=== PATIENT | female | born 1950 | race Caucasian/White ===

== ENCOUNTER 2018-05-01 09:48 | Outpatient (CLI) | payer MEDICARE | END 2018-05-01 09:49 | disposition home or self-care (01) | LOC: BICMAMMO 09:48 | PROVIDERS: ATTEND Family Medicine | DX: Z12.31 Encounter for screening mammogram for malignant neoplasm of breast (principal) | CPT/HCPCS: 77063; 77067 ==

== ENCOUNTER 2019-07-08 10:17 | Outpatient (CLI) | payer MEDICARE ==
--- NOTE | 2019-07-08 11:10 | MMO ---
Bilateral MAMMO Bilat Screen [facility]. CLINICAL HISTORY: Patient is 68 years old and is seen for screening. The patient has the following family history of breast cancer: mother, at age 50, malignant (generic). The patient has no personal history of cancer. VIEWS: The views performed were: bilateral craniocaudal with tomosynthesis and bilateral mediolateral oblique with tomosynthesis. FILMS COMPARED: The present examination has been compared to prior imaging studies performed at [facility] on 02/12/2015, 04/17/2016, 04/25/2017 and 05/01/2018. This study has been interpreted with the assistance of computer-aided detection. MAMMOGRAM FINDINGS: There are scattered fibroglandular densities. Finding 1: There are stable benign appearing calcifications seen in both breasts. There are also vascular calcifications. Finding 2: There is an asymmetry seen in the MLO view only seen in the posterior upper region of the left breast. IMPRESSION: FINDING 2: ASYMMETRY IN THE LEFT BREAST REQUIRES ADDITIONAL EVALUATION. RECOMMEND DIAGNOSTIC MAMMOGRAM. ULTRASOUND MAY ALSO PROVE USEFUL AT RECALL. THE RESULTS OF THIS EXAM WERE SENT TO THE PATIENT. ACR BI-RADS Category 0 - Incomplete: Need additional imaging evaluation. [facility] will notify the patient of the need for additional imaging services. MAMMOGRAPHY NOTE: 1. A negative mammogram report should not delay a biopsy if a dominant of clinically suspicious mass is present. 2. Approximately 10% to 15% of breast cancers are not detected by mammography. 3. Adenosis and dense breasts may obscure an underlying neoplasm. Reported by: RICCI ESCALANTE MD Electonically Signed: [id number]
== END 2019-07-08 10:18 | disposition home or self-care (01) ==
LOC: BICMAMMO 10:17
PROVIDERS: ATTEND Family Medicine
DX: Z12.31 Encounter for screening mammogram for malignant neoplasm of breast (principal); N64.89 Other specified disorders of breast; Z80.3 Family history of malignant neoplasm of breast
CPT/HCPCS: 77063; 77067

== ENCOUNTER 2020-04-27 08:21 | Outpatient (CLI) | payer MEDICARE ==
--- NOTE | 2020-04-27 09:01 | ULT ---
Ultrasound of theabdomen: 04/27/2020 COMPARISON:None available HISTORY:Dysuria TECHNIQUE: Multiplanar grayscale sonographic imaging of theabdomen FINDINGS:Visualized portions of the pancreas appear unremarkable. Imaged abdominal aorta demonstrates multifocal calcified atherosclerotic plaque. Imaged IVC grossly unremarkable. No focal liver lesion or intrahepatic biliary dilatation is noted. No gallbladder wall thickening or gallstones. Common bile duct measures 5-6 mm. Right kidney measures 9.6 cm in craniocaudal dimension and demonstrates no mass or hydronephrosis. Th ere are a few punctate echogenic foci within the right kidney which could signify small stones. The left kidney measures 11.4 cm in craniocaudal dimension and demonstrates no stone, hydronephrosis, or mass. The spleen measures up to 9.6 cm, within normal limits. IMPRESSION:No evidence for cholelithiasis or cholecystitis. No hydronephrosis. Possible small right r enal calculi. CT suggested.
--- NOTE | 2020-04-27 09:42 | ULT ---
Exam: Endovaginal pelvic ultrasound HISTORY:Dysuria COMPARISON: None TECHNIQUE: Transabdominal and endovaginal imaging of the pelvis is performed. Ovaries are interrogate d with grayscale, color flow, Doppler imaging and spectral wave form analysis FINDINGS: Uterus: Echogenic focus in the uterine fundus measuring 1.9 x 1.9 x 1.9 cm. Findings may represent a uterine leiomyoma. Uterus measurin.9 x 3.1 x 5.7 cm. Endometrium: Poorly visualized. 3 Free fluid: None Right ovary: Not appreciated Left ovary: Normal echotexture. Left ovary measurements: 1.8 x 1.8 x 2.6 cm Ovarian Doppler: There is vascular flow to the left ovary. Bladder: No signal abnormality. IMPRESSION: Echogenic focus in the uterine myometrium may represent a uterine leiomyoma confirmation with pelvic MRI is recommended given that the patient is presumed to be postmenopausal. The possibility of a malignant process needs to be excluded. CODE T
== END 2020-04-27 08:22 | disposition home or self-care (01) ==
LOC: BICULT 08:21
PROVIDERS: ATTEND Family Medicine
DX: R30.0 Dysuria (principal)
CPT/HCPCS: 76856; 76857; 93975

== ENCOUNTER 2020-05-01 06:39 | Inpatient (IN) | payer MEDICARE, OTHER ==
[2020-05-01 07:34] LABS: Hemoglobin 9.8 g/dL (12.0-16.0); Mean Corpuscular HGB CONC 34.4 g/dL (32.0-36.0); Mean Corpuscular Hemoglobin 42.8 pg (27.0-31.0); Mean Platelet Volume 7.2 fL (7.4-10.4); Platelet Count 238 thou/uL (130-400); RBC Distribution Width 13.6 % (11.5-14.5); Red Blood Cell (RBC) Count 2.29 mill/uL (4.20-5.40)
[2020-05-01 07:42] LABS: ALT (SGPT) 10 U/L (8-55); AST (SGOT) 22 U/L (5-34); Albumin 3.8 g/dL (3.4-4.8); Alkaline Phosphatase 43 U/L (40-110); Anion Gap 15 mmol/L (10-20); BUN (Urea Nitrogen) 5 mg/dL (9.8-20.1); Bilirubin, Total 0.8 mg/dL (0.2-1.2); Calc. Creatinine Clearance 0 mL/min (70-130); Calcium 8.2 mg/dL (7.8-10.44); Carbon Dioxide 25 mmol/L (23-31); Chloride 100 mmol/L (98-107); Estimated GFR-MDRD 84; Globulin 1.9 g/dL (2.4-3.5); Glucose 117 mg/dL (83-110); Potassium 3.7 mmol/L (3.5-5.1); Protein, Total 5.7 g/dL (6.0-8.3); Sodium 136 mmol/L (136-145)
[2020-05-01 07:46] LABS: #Eosinphils 0.2 thou/uL (0.0-0.7); #Lymphocytes 0.8 thou/uL (1.20-3.40); #Monocytes 0.2 thou/uL (0.11-0.59); #Neutrophils 1.7 thou/uL (1.40-6.50); %Basophils 0.3 % (0.0-1.0); %Eosinophils 7.7 % (0.0-10.0); %Lymphocytes 26.8 % (21.0-51.0); %Monocytes 5.1 % (0.0-10.0); %Neutrophils 60.1 % (42.0-75.0); MDiff Complete? YES; Macrocytosis MODERATE=16-30 cells (100X) (0-5/hpf); Platelet Morphology Comment Appears Adequate; White Blood Cell (WBC) Count 2.9 thou/uL (4.8-10.8)
[2020-05-01 09:46] LABS: Bilirubin Negative (Negative); Blood, Urine Negative (Negative); Clarity Clear (Clear); Glucose, Urine (Dipstick) Normal (Negative); Ketone, Urine 40 mg/dL (Negative); Leukocyte Negative Leu/uL (Negative); Nitrite Negative (Negative); Protein, Urine (Dipstick) Negative (Neg-Trace); Specific Gravity, Urine 1.009 (1.002-1.036); Urobilinogen Normal mg/dL (Less than 2); pH, Urine 6.5 (5.0-9.0)
[2020-05-01] MEDS ORDERED: cefTRIAXone\\ROCEPHIN 1 GM VIAL ONE (11:18)
[2020-05-01] MEDS ORDERED: Ondansetron PF 4 MG/2 ML Vial IVP PRN (12:11)
[2020-05-01] MEDS: Sodium Chloride 0.9% 1,000 ML IV SCH ×2 (12:15→17:47)
[2020-05-01] MEDS: Vancomycin HCl 25 MG/ML Oral PO SCH ×3 (14:34→23:25)
[2020-05-01] MEDS: Acetaminophen 325 MG TAB PO PRN ×2 (16:06→23:28)
--- NOTE | 2020-05-01 17:02 | HP ---
CHIEF COMPLAINT: Diarrhea. HISTORY OF PRESENT ILLNESS: The patient is a 69-year-old female with past medical history of coronary artery disease and ventricular fibrillation in 2012. She presented to the hospital with complaints of diarrhea. The patient was diagnosed with UTI 6 weeks ago and since then has been off and on antibiotics until yesterday. The patient received different types of antibiotics and her symptoms did not improve and finally received Rocephin for the past 3 days, which led to improvement in her urinary symptoms. In the ER, her UA was clear. The patient complained of severe diarrhea over the past few days that is liquid in nature with some mixed blood. She denies any nausea or vomiting, but complained of mild abdominal pain. She also denies fevers or chills. She was tested negative for COVID-19 a couple of days ago. REVIEW OF SYSTEMS: Negative except as noted in HPI. PAST MEDICAL HISTORY: Coronary artery disease, status post stent and ventricular fibrillation during that event. PAST SURGICAL HISTORY: Tubal ligation. SOCIAL HISTORY: The patient denies alcohol use, illicit drug use, or smoking. ALLERGIES: NO KNOWN DRUG ALLERGIES. PHYSICAL EXAMINATION: GENERAL: The patient is alert and oriented. HEENT: Head is normocephalic and atraumatic. Extraocular muscles are intact. NECK: Supple. CARDIOVASCULAR: Revealed tachycardia with regular rhythm. No murmurs, rubs, or gallops. ABDOMEN: Soft, nontender, and nondistended. NEUROLOGIC: Unremarkable. DATA: The patient's urine culture from 04/16 did show growth of E coli, which is sensitive to ceftriaxone. Recent urine culture on April 29 was negative. Stool cultures were negative for bacteria, but were positive for C difficile antigen and toxin. ASSESSMENT: 1. Clostridium difficile colitis. 2. Dehydration. 3. Coronary artery disease. 4. History of urinary tract infection. PLAN: The patient will be admitted to the medical floor. We will start oral vancomycin 250 mg q.6 hours in addition to IV normal saline at 75 mL/h. The patient will be started on liquid diet and we will initiate enoxaparin for DVT prophylaxis. Further recommendations depend on the patient's hospital course. Job ID: [id number]
[2020-05-02] MEDS: Sodium Chloride 0.9% 1,000 ML IV SCH ×3 (01:46→19:59)
[2020-05-02] MEDS: Vancomycin HCl 25 MG/ML Oral PO SCH ×4 (05:43→23:56)
[2020-05-02] MEDS: Acetaminophen 325 MG TAB PO PRN ×2 (06:04→17:03)
[2020-05-02 06:12] LABS: #Eosinphils 0.1 thou/uL (0.0-0.7); #Lymphocytes 0.5 thou/uL (1.20-3.40); #Monocytes 0.2 thou/uL (0.11-0.59); %Basophils 0.2 % (0.0-1.0); %Eosinophils 3.6 % (0.0-10.0); %Lymphocytes 17.7 % (21.0-51.0); %Monocytes 5.9 % (0.0-10.0); %Neutrophils 72.7 % (42.0-75.0); Mean Corpuscular HGB CONC 34.6 g/dL (32.0-36.0); Mean Corpuscular Hemoglobin 43.6 pg (27.0-31.0); Mean Platelet Volume 7.1 fL (7.4-10.4); Platelet Count 200 thou/uL (130-400); RBC Distribution Width 13.6 % (11.5-14.5); Red Blood Cell (RBC) Count 2.07 mill/uL (4.20-5.40); White Blood Cell (WBC) Count 2.7 thou/uL (4.8-10.8)
[2020-05-02 06:26] LABS: Anion Gap 13 mmol/L (10-20); BUN (Urea Nitrogen) 4 mg/dL (9.8-20.1); Calc. Creatinine Clearance 72 mL/min (70-130); Calcium 7.6 mg/dL (7.8-10.44); Carbon Dioxide 21 mmol/L (23-31); Chloride 104 mmol/L (98-107); Estimated GFR-MDRD Greater than 90; Glucose 106 mg/dL (83-110); Potassium 3.4 mmol/L (3.5-5.1); Sodium 135 mmol/L (136-145)
[2020-05-02] MEDS ORDERED: Potassium Chloride 20 MEQ TAB PO SCH (08:15)
[2020-05-02] MEDS ORDERED: FLU VACC QS2020-21(65YR UP)/PF 240 MCG/0.7 ML SYRINGE IM ONE (09:00)
[2020-05-02] MEDS: Enoxaparin Sodium 40 MG/0.4 ML SYRINGE SC SCH (09:09)
--- NOTE | 2020-05-02 11:41 | PDOC.HOSPP ---
- Subjective Encounter Date: 05/02/20 Encounter Time: 09:00 Subjective: Pt reports she overall feels well. Endorses persistent diarrhea and foul- smelling stools. Endorses abdominal pain and cramping. Denies fever/chills, dizziness. Denies chest pain, SOB. Tolerating clear liquid diet. No overnight events. Chart and medications reviewed. - Objective Vital Signs & Weight: Vital Signs (12 hours) Temp Pulse Resp BP Pulse Ox 05/02/20 11:20 98.8 F 92 18 112/56 L 94 L 05/02/20 08:00 98.0 F 92 05/02/20 07:21 98.0 F 92 18 109/56 L 94 L 05/02/20 04:00 100.8 F H 97 18 109/65 93 L Weight Weight 110 lb 6.4 oz I&O: 05/01/20 05/02/20 05/03/20 06:59 06:59 06:59 Intake Total 1600 240 Balance 1600 240 Result Diagrams: 05/02/20 05:45 05/02/20 05:45 Hospitalist ROS - Review of Systems Constitutional: reports: weakness. denies: fever, chills Eyes: denies: vision change ENT: denies: nose congestion, throat pain Respiratory: denies: cough, shortness of breath Cardiovascular: denies: chest pain, palpitations Gastrointestinal: reports: abdominal pain, diarrhea, melena, hematochezia. denies: nausea, vomiting Genitourinary: denies: dysuria Skin: denies: rash Neurological: denies: weakness, numbness - Medication Medications: Active Medications Generic Name Dose Route Start Last Admin Trade Name Panchoq PRN Reason Stop Dose Admin Acetaminophen 650 mg 05/01/20 12:11 05/02/20 06:04 Acetaminophen 325 Mg Tab PO 650 mg Q4H PRN Administration Headache/Fever/Mild Pain (1-3) Enoxaparin Sodium 40 mg 05/02/20 09:00 05/02/20 09:09 Enoxaparin Sodium 40 Mg/0.4 Ml Syringe SC Not Given 0900 TIMOTHY Sodium Chloride 1,000 mls @ 75 mls/hr 05/01/20 12:15 05/02/20 05:48 Normal Saline 0.9% IV 1,000 mls .[id number] TIMOTHY Administration Sodium Chloride 10 ml 05/02/20 09:00 05/02/20 09:09 Flush - Normal Saline 10 Ml Syringe IVF 10 ml Q12HR TIMOTHY Administration Vancomycin HCl 250 mg 05/01/20 12:00 05/02/20 05:43 Vancomycin Hcl 25 Mg/Ml Oral PO 250 mg Q6HR TIMOTHY Administration - Exam General Appearance: NAD, awake alert Eye: PERRL, anicteric sclera ENT: normocephalic atraumatic, no oropharyngeal lesions, moist mucosa Neck: supple, symmetric, no JVD, no thyromegaly, no lymphadenopathy, no carotid bruit Heart: RRR, no murmur, no gallops, no rubs, normal peripheral pulses Respiratory: CTAB, no wheezes, no rales, no ronchi, normal chest expansion, no tachypnea, normal percussion Gastrointestinal: soft, non-distended, normal bowel sounds, no palpable masses, no hepatomegaly, no splenomegaly, no bruit, tender to palpation Extremities: no cyanosis, no clubbing, no edema Skin: normal turgor, no lesions, no rashes Neurological: cranial nerve grossly intact, normal sensation to touch, no weakness, no focal deficits, no new deficit Musculoskeletal: normal tone, normal strength, no muscle wasting Psychiatric: normal affect, normal behavior, A&O x 3 Hosp A/P (1) C. difficile colitis Code(s): A04.72 - ENTEROCOLITIS D/T CLOSTRIDIUM DIFFICILE, NOT SPCF RECUR Status: Acute (2) CAD (coronary artery disease) Code(s): I25.10 - ATHSCL HEART DISEASE OF [place] CORONARY ARTERY W/O ANG PCTRS Status: Acute (3) History of ventricular fibrillation Code(s): Z86.79 - PERSONAL HISTORY OF OTHER DISEASES OF THE CIRCULATORY SYSTEM Status: Acute (4) Hypertension Code(s): I10 - ESSENTIAL (PRIMARY) HYPERTENSION Status: Acute (5) Hyperlipidemia Code(s): E78.5 - HYPERLIPIDEMIA, UNSPECIFIED Status: Acute (6) Hypokalemia Code(s): E87.6 - HYPOKALEMIA Status: Acute - Plan C. difficile Colitis: 69F hx CAD, v-fib, HTN, HLD p/w diarrhea and abdominal pain found to have c. diff colitis. Pt had recent UTI 6 weeks ago that required multiple abx. Most recently 3 days ago she was treated with ceftriaxone. Pt currently denies urinary symptoms. UA negative. Stool positive for c. diff antigen and toxin. WBC 2.7, afebrile. BUN/Cr 4/0.57. Pt started on PO vancomycin. PLAN: -PO vancomycin -Clear liquid diet -Serial abdominal exams History of V. fib: Hx of v. fib in 2012. On home magnesium. Will check level and continue. PLAN: -Mg level -Replete as needed CAD: Hx CAD. On home metoprolol 12.5 mg, crestor 20 mg, and ASA 81 mg. Continue home meds. Macrocytic Anemia: CBC with H/H of 9.0/26.1, elevated MCHC, MCV. Vitamin B12 level low at 109. PLAN: -Vitamin B12 PO -Follow-up with PCP Hypertension: Continue home lisinopril. Hyperlipidemia: Continue crestor 20 mg. DVT prophylaxis: lovenox FULL CODE Case discussed with attending physician, Dr. Hernandez.
[2020-05-02] MEDS: Potassium Phosphate 30 MMOL in Sodium Chloride 0.9% 250 ML 250 ML IVPB SCH (12:52)
[2020-05-02] MEDS: Metoprolol Tartrate 25 MG TAB PO SCH (19:58)
[2020-05-02] MEDS ORDERED: Preparation H Ointment 57 gram tube TOP PRN (20:18)
[2020-05-03] MEDS: Sodium Chloride 0.9% 1,000 ML IV SCH ×2 (05:25→14:21)
[2020-05-03] MEDS: Vancomycin HCl 25 MG/ML Oral PO SCH ×3 (05:28→17:23)
[2020-05-03] MEDS: Acetaminophen 325 MG TAB PO PRN ×2 (05:29→17:23)
[2020-05-03 06:01] LABS: #Eosinphils 0.2 thou/uL (0.0-0.7); #Monocytes 0.1 thou/uL (0.11-0.59); #Neutrophils 4.3 thou/uL (1.40-6.50); %Basophils 0.3 % (0.0-1.0); %Eosinophils 2.8 % (0.0-10.0); %Lymphocytes 18.3 % (21.0-51.0); %Monocytes 1.8 % (0.0-10.0); %Neutrophils 76.9 % (42.0-75.0); Hemoglobin 10.2 g/dL (12.0-16.0); Mean Corpuscular HGB CONC 32.9 g/dL (32.0-36.0); Mean Corpuscular Hemoglobin 42.1 pg (27.0-31.0); Mean Platelet Volume 7.4 fL (7.4-10.4); Platelet Count 225 thou/uL (130-400); RBC Distribution Width 13.7 % (11.5-14.5); Red Blood Cell (RBC) Count 2.42 mill/uL (4.20-5.40); White Blood Cell (WBC) Count 5.5 thou/uL (4.8-10.8)
[2020-05-03 06:14] LABS: Anion Gap 14 mmol/L (10-20); BUN (Urea Nitrogen) 4 mg/dL (9.8-20.1); Calc. Creatinine Clearance 71 mL/min (70-130); Calcium 8.1 mg/dL (7.8-10.44); Carbon Dioxide 21 mmol/L (23-31); Chloride 100 mmol/L (98-107); Estimated GFR-MDRD Greater than 90; Glucose 106 mg/dL (83-110); Potassium 3.8 mmol/L (3.5-5.1); Sodium 131 mmol/L (136-145)
[2020-05-03] MEDS: Lisinopril 2.5 MG TAB PO SCH (08:35)
[2020-05-03] MEDS: Aspirin Chewable 81 MG TAB PO SCH (08:35)
[2020-05-03] MEDS: Enoxaparin Sodium 40 MG/0.4 ML SYRINGE SC SCH (08:37)
[2020-05-03] MEDS: Cholecalciferol 1,000 UNITS (25 MCG) TAB PO SCH (08:37)
[2020-05-03] MEDS: Cyanocobalamin (Vitamin B-12) 1,000 MCG TAB PO SCH (08:37)
[2020-05-03] MEDS: Metoprolol Tartrate 25 MG TAB PO SCH ×2 (08:37→21:20)
[2020-05-03] MEDS ORDERED: Magnesium 2 GM/50 ML 2 GM in Premix Bag 1 BAG IVPB SCH (11:00)
--- NOTE | 2020-05-03 11:37 | PDOC.HOSPP ---
- Subjective Encounter Date: 05/03/20 Encounter Time: 11:15 Subjective: Patient seen and examined. No new complaints. No overnight events. Reports 3 watery stools this morning. Reports mild swelling to B feet. Denies N/V. Tolerating CL diet well. Denies any light headedness, chest pain, heart pal pitations or SOB. Denies any urinary symptoms. - Objective Vital Signs & Weight: Vital Signs (12 hours) Temp Pulse Resp BP BP BP Pulse Ox 05/03/20 08:35 85 133/77 05/03/20 08:30 95 05/03/20 07:29 99.0 F 80 14 100/58 L 95 05/03/20 04:00 99.5 F 104 H 20 127/76 97 05/02/20 23:59 98.6 F 104 H 18 125/66 99 Weight Admit Weight 106 lb 3.2 oz Weight 117 lb 11.2 oz I&O: 05/02/20 05/03/20 05/04/20 06:59 06:59 06:59 Intake Total 1600 3560 1600 Balance 1600 3560 1600 Result Diagrams: 05/03/20 05:33 05/03/20 05:33 Hospitalist ROS - Review of Systems Constitutional: denies: fever, chills Respiratory: denies: cough, shortness of breath, SOB with excertion Cardiovascular: reports: edema (bilateral feet, mild). denies: chest pain, palpitations Gastrointestinal: reports: diarrhea (3 watery stools). denies: nausea, vomiting, abdominal pain Genitourinary: denies: dysuria, hematuria Neurological: denies: change in speech, confusion All other systems reviewed; all pertinent +/- noted in HPI/Subj - Medication Medications: Active Medications Generic Name Dose Route Start Last Admin Trade Name Freq PRN Reason Stop Dose Admin Acetaminophen 650 mg 05/01/20 12:11 05/03/20 05:29 Acetaminophen 325 Mg Tab PO 650 mg Q4H PRN Administration Headache/Fever/Mild Pain (1-3) Aspirin 81 mg 05/03/20 09:00 05/03/20 08:35 Aspirin Chewable 81 Mg Tab PO 81 mg DAILY TIMOTHY Administration Cholecalciferol 1,000 units 05/03/20 09:00 05/03/20 08:37 Cholecalciferol 1,000 Units (25 Mcg) Tab PO 1,000 units DAILY TIMOTHY Administration Cyanocobalamin 1,000 mcg 05/03/20 09:00 05/03/20 08:37 Cyanocobalamin (Vitamin B-12) 1,000 Mcg Tab PO 1,000 mcg DAILY TIMOTHY Administration Enoxaparin Sodium 40 mg 05/02/20 09:00 05/03/20 08:37 Enoxaparin Sodium 40 Mg/0.4 Ml Syringe SC 40 mg 0900 TIMOTHY Administration Sodium Chloride 1,000 mls @ 50 mls/hr 05/01/20 12:15 05/03/20 05:25 Normal Saline 0.9% IV Not Given .Q20H TIMOTHY Potassium Phosphate 30 mmol/ 260 mls @ 43.333 mls/hr 05/02/20 11:45 05/02/20 12:52 Sodium Chloride IVPB 05/03/20 17:44 260 mls NOW TIMOTHY Administration Lisinopril 2.5 mg 05/03/20 09:00 05/03/20 08:35 Lisinopril 2.5 Mg Tab PO 2.5 mg DAILY TIMOTHY Administration Metoprolol Tartrate 12.5 mg 05/02/20 21:00 05/03/20 08:37 Metoprolol Tartrate 25 Mg Tab PO 12.5 mg BID TIMOTHY Administration Sodium Chloride 10 ml 05/02/20 09:00 05/03/20 08:37 Flush - Normal Saline 10 Ml Syringe IVF Not Given Q12HR TIMOTHY Vancomycin HCl 250 mg 05/01/20 12:00 05/03/20 05:28 Vancomycin Hcl 25 Mg/Ml Oral PO 250 mg Q6HR TIMOTHY Administration - Exam General Appearance: NAD, awake alert Eye: anicteric sclera ENT: normocephalic atraumatic Neck: supple, symmetric, no JVD Heart: RRR, no murmur, no gallops, no rubs, normal peripheral pulses Respiratory: CTAB, no wheezes, no rales, no ronchi, normal chest expansion Gastrointestinal: soft, non-tender, non-distended, normal bowel sounds, no bruit, no guarding, no rigidity Extremities: no cyanosis, no edema Neurological: no weakness, no focal deficits Psychiatric: normal affect, A&O x 3 Hosp A/P (1) C. difficile colitis Code(s): A04.72 - ENTEROCOLITIS D/T CLOSTRIDIUM DIFFICILE, NOT SPCF RECUR Status: Acute (2) Dehydration Code(s): E86.0 - DEHYDRATION Status: Acute (3) Hypomagnesemia Code(s): E83.42 - HYPOMAGNESEMIA Status: Acute (4) Hypokalemia Code(s): E87.6 - HYPOKALEMIA Status: Acute (5) CAD (coronary artery disease) Code(s): I25.10 - ATHSCL HEART DISEASE OF [place] CORONARY ARTERY W/O ANG PCTRS Status: Chronic - Plan #C. difficile colitis Reports 3 watery stools this am. Tolerating CL diet well. continue vancomycin po q6 hours, IVF contact/enteric precautions. Add probiotic. Start cholestyramine. #Dehydration Likely secondary to problem #1. #Hypo-magnesium Mag level 1.6, replace with 2 g IVPB Patient takes Mag-Ox p.o. M WF Continue home dose Mag-Ox Recheck level in a.m. #CAD Continue home dose metoprolol, Crestor, aspirin Discussed case with Dr. Hernandez.
[2020-05-03] MEDS: Magnesium Oxide 400 MG TAB PO SCH (12:18)
[2020-05-03] MEDS: Potassium Phosphate 30 MMOL in Sodium Chloride 0.9% 250 ML 250 ML IVPB SCH (14:21)
[2020-05-03] MEDS: Cholestyramine/Aspartame 4 gm Packet PO SCH (21:14)
[2020-05-03] MEDS: Rosuvastatin 20 MG TAB PO SCH (21:18)
[2020-05-03] MEDS: Saccharomyces boulardii 250 MG CAP PO SCH (21:19)
[2020-05-04] MEDS: Sodium Chloride 0.9% 1,000 ML IV SCH ×2 (03:37→18:07)
[2020-05-04] MEDS: Vancomycin HCl 25 MG/ML Oral PO SCH ×4 (05:48→18:06)
[2020-05-04 06:10] LABS: #Eosinphils 0.2 thou/uL (0.0-0.7); #Lymphocytes 0.7 thou/uL (1.20-3.40); #Monocytes 0.1 thou/uL (0.11-0.59); #Neutrophils 2.4 thou/uL (1.40-6.50); %Basophils 0.3 % (0.0-1.0); %Eosinophils 4.5 % (0.0-10.0); %Monocytes 2.5 % (0.0-10.0); %Neutrophils 72.6 % (42.0-75.0); Hemoglobin 8.1 g/dL (12.0-16.0); Mean Corpuscular HGB CONC 34.7 g/dL (32.0-36.0); Mean Platelet Volume 7.5 fL (7.4-10.4); Platelet Count 172 thou/uL (130-400); RBC Distribution Width 13.7 % (11.5-14.5); Red Blood Cell (RBC) Count 1.83 mill/uL (4.20-5.40); White Blood Cell (WBC) Count 3.3 thou/uL (4.8-10.8)
[2020-05-04 06:33] LABS: Anion Gap 13 mmol/L (10-20); BUN (Urea Nitrogen) 4 mg/dL (9.8-20.1); Calc. Creatinine Clearance 84 mL/min (70-130); Calcium 7.5 mg/dL (7.8-10.44); Carbon Dioxide 22 mmol/L (23-31); Chloride 102 mmol/L (98-107); Estimated GFR-MDRD Greater than 90; Glucose 97 mg/dL (83-110); Magnesium 1.9 mg/dL (1.6-2.6); Potassium 3.8 mmol/L (3.5-5.1); Sodium 133 mmol/L (136-145)
--- NOTE | 2020-05-04 08:06 | PDOC.HOSPP ---
- Subjective Encounter Date: 05/04/20 Encounter Time: 08:03 Subjective: Patient seen and examined. No new complaints. No overnight events. Reports tolerating CL diet fine. Reports 7 watery stools yesterday. Reports hemorrhoid cream and barrier cream application after BM is helping. Denies any abdominal pain, N/V. Denies feeling light headed, chest pain or SOB. Walking around in the room for exercise. - Objective Vital Signs & Weight: Vital Signs (12 hours) Temp Pulse Resp BP Pulse Ox 05/04/20 07:29 98.6 F 93 20 129/65 97 Weight Admit Weight 106 lb 3.2 oz Weight 117 lb 11.2 oz I&O: 05/03/20 05/04/20 05/05/20 06:59 06:59 06:59 Intake Total 3560 2320 Balance 3560 2320 Result Diagrams: 05/04/20 05:34 05/04/20 05:34 Hospitalist ROS - Review of Systems Constitutional: denies: fever, chills Respiratory: denies: cough, shortness of breath, hemoptysis Cardiovascular: denies: chest pain, palpitations, light headedness Gastrointestinal: reports: diarrhea. denies: nausea, vomiting, abdominal pain Genitourinary: denies: dysuria Neurological: denies: weakness, change in speech All other systems reviewed; all pertinent +/- noted in HPI/Subj - Medication Medications: Active Medications Generic Name Dose Route Start Last Admin Trade Name Freq PRN Reason Stop Dose Admin Acetaminophen 650 mg 05/01/20 12:11 05/03/20 17:23 Acetaminophen 325 Mg Tab PO 650 mg Q4H PRN Administration Headache/Fever/Mild Pain (1-3) Aspirin 81 mg 05/03/20 09:00 05/03/20 08:35 Aspirin Chewable 81 Mg Tab PO 81 mg DAILY TIMOTHY Administration Cholecalciferol 1,000 units 05/03/20 09:00 05/03/20 08:37 Cholecalciferol 1,000 Units (25 Mcg) Tab PO 1,000 units DAILY TIMOTHY Administration Cholestyramine Resin 4 gm 05/03/20 22:00 05/03/20 21:14 Cholestyramine/Aspartame 4 Gm Packet PO 4 gm 1000,2200 TIMOTHY Administration Cyanocobalamin 1,000 mcg 05/03/20 09:00 05/03/20 08:37 Cyanocobalamin (Vitamin B-12) 1,000 Mcg Tab PO 1,000 mcg DAILY TIMOTHY Administration Enoxaparin Sodium 40 mg 05/02/20 09:00 05/03/20 08:37 Enoxaparin Sodium 40 Mg/0.4 Ml Syringe SC 40 mg 0900 TIMOTHY Administration Sodium Chloride 1,000 mls @ 50 mls/hr 05/01/20 12:15 05/03/20 14:21 Normal Saline 0.9% IV 1,000 mls .Q20H TIMOTHY Administration Lisinopril 2.5 mg 05/03/20 09:00 05/03/20 08:35 Lisinopril 2.5 Mg Tab PO 2.5 mg DAILY TIMOTHY Administration Magnesium Oxide 400 mg 05/03/20 11:51 05/03/20 12:18 Magnesium Oxide 400 Mg Tab PO 400 mg MoWeFr TIMOTHY Administration Metoprolol Tartrate 12.5 mg 05/02/20 21:00 05/03/20 21:20 Metoprolol Tartrate 25 Mg Tab PO 12.5 mg BID TIMOTHY Administration Rosuvastatin Calcium 20 mg 05/03/20 21:00 05/03/20 21:18 Rosuvastatin 20 Mg Tab PO 20 mg MoTuWeThFr TIMOTHY Administration Saccharomyces Boulardii 250 mg 05/03/20 21:00 05/03/20 21:19 Saccharomyces Boulardii 250 Mg Cap PO 250 mg BID TIMOTHY Administration Sodium Chloride 10 ml 05/02/20 09:00 05/03/20 21:21 Flush - Normal Saline 10 Ml Syringe IVF Not Given Q12HR TIMOTHY Vancomycin HCl 250 mg 05/01/20 12:00 05/04/20 05:48 Vancomycin Hcl 25 Mg/Ml Oral PO 250 mg Q6HR TIMOTHY Administration - Exam General Appearance: NAD, awake alert ENT: normocephalic atraumatic, moist mucosa Neck: supple, symmetric Heart: RRR, no gallops, no rubs, normal peripheral pulses Respiratory: CTAB, no wheezes, no rales, no ronchi, normal chest expansion, no tachypnea Gastrointestinal: soft, non-tender, non-distended, normal bowel sounds, no guarding, no rigidity Extremities: no cyanosis, no edema Skin: no rashes Psychiatric: normal affect, A&O x 3 Hosp A/P (1) C. difficile colitis Code(s): A04.72 - ENTEROCOLITIS D/T CLOSTRIDIUM DIFFICILE, NOT SPCF RECUR Status: Acute (2) Dehydration Code(s): E86.0 - DEHYDRATION Status: Acute (3) Macrocytic anemia Code(s): D53.9 - NUTRITIONAL ANEMIA, UNSPECIFIED Status: Chronic (4) Hypocalcemia Code(s): E83.51 - HYPOCALCEMIA Status: Acute (5) Hypomagnesemia Code(s): E83.42 - HYPOMAGNESEMIA Status: Acute (6) Hypokalemia Code(s): E87.6 - HYPOKALEMIA Status: Acute (7) CAD (coronary artery disease) Code(s): I25.10 - ATHSCL HEART DISEASE OF [place] CORONARY ARTERY W/O ANG PCTRS Status: Chronic - Plan #C. difficile colitis Reports 7 watery stools total yesterday. Tolerating CL diet well. Vancomycin po q6 hours Gentle IVF hydration Continue contact/enteric precautions. Continue probiotic. Continue cholestyramine. #Dehydration Improved. Continue gentle IVF hydration. #Macroctyic anemia Hgb 8.1 B12 level 109 Folate level 16.7 takes B12 supplementation at home Continue home dose B12 #Hypocalcemia corrected for albumin, 7.7 mild. Add calcium citrate w/ Vitamin D3. #Hypo-magnesium Improved, Mag level 1.9 Continue Mag-Ox supplementation daily #CAD Continue metoprolol, Crestor, aspirin Discussed case with Dr. Hernandez.
[2020-05-04] MEDS: Cyanocobalamin (Vitamin B-12) 1,000 MCG TAB PO SCH (09:25)
[2020-05-04] MEDS: Metoprolol Tartrate 25 MG TAB PO SCH ×2 (09:25→21:02)
[2020-05-04] MEDS: Saccharomyces boulardii 250 MG CAP PO SCH ×2 (09:25→21:02)
[2020-05-04] MEDS: Lisinopril 2.5 MG TAB PO SCH (09:26)
[2020-05-04] MEDS: Aspirin Chewable 81 MG TAB PO SCH (09:27)
[2020-05-04] MEDS: Enoxaparin Sodium 40 MG/0.4 ML SYRINGE SC SCH (09:34)
[2020-05-04] MEDS: Cholecalciferol 1,000 UNITS (25 MCG) TAB PO SCH (09:36)
[2020-05-04] MEDS ORDERED: Calcium Carbonate 600 MG TAB PO SCH (10:15)
[2020-05-04] MEDS: Cholestyramine/Aspartame 4 gm Packet PO SCH ×2 (11:48→21:04)
[2020-05-04] MEDS: Rosuvastatin 20 MG TAB PO SCH (21:02)
[2020-05-04] MEDS: Calcium Citrate 950 MG TAB PO SCH (21:03)
[2020-05-04] MEDS: Acetaminophen 325 MG TAB PO PRN (21:07)
[2020-05-05 05:32] LABS: #Eosinphils 0.2 thou/uL (0.0-0.7); #Lymphocytes 0.8 thou/uL (1.20-3.40); #Monocytes 0.2 thou/uL (0.11-0.59); %Basophils 0.2 % (0.0-1.0); %Eosinophils 5.7 % (0.0-10.0); %Lymphocytes 25.8 % (21.0-51.0); %Monocytes 5.9 % (0.0-10.0); %Neutrophils 62.4 % (42.0-75.0); Hemoglobin 8.1 g/dL (12.0-16.0); Mean Corpuscular HGB CONC 34.1 g/dL (32.0-36.0); Mean Corpuscular Hemoglobin 42.7 pg (27.0-31.0); Mean Platelet Volume 7.8 fL (7.4-10.4); Platelet Count 178 thou/uL (130-400); White Blood Cell (WBC) Count 3.1 thou/uL (4.8-10.8)
[2020-05-05] MEDS: Vancomycin HCl 25 MG/ML Oral PO SCH ×5 (05:55→23:28)
[2020-05-05 05:56] LABS: Anion Gap 15 mmol/L (10-20); BUN (Urea Nitrogen) Less than 4 mg/dL (9.8-20.1); Calc. Creatinine Clearance 82 mL/min (70-130); Calcium 7.6 mg/dL (7.8-10.44); Carbon Dioxide 21 mmol/L (23-31); Chloride 102 mmol/L (98-107); Estimated GFR-MDRD Greater than 90; Glucose 91 mg/dL (83-110); Potassium 3.5 mmol/L (3.5-5.1); Sodium 134 mmol/L (136-145)
[2020-05-05] MEDS ORDERED: Calcium Carbonate 600 MG TAB PO SCH (09:00)
--- NOTE | 2020-05-05 09:08 | PDOC.HOSPP ---
- Subjective Encounter Date: 05/05/20 Encounter Time: 09:06 Subjective: Patient seen and examined. No new complaints. No overnight events. Reports approximately 8 loose stools yesterday. Eating broth, wants to try jello. Reports hemorrhoid cream is working well. Wants another alternative, so we d iscussed sitz bath. Denies abdominal pain, N/V. Denies chest pain, SOB and fever. Has no other concerns at this time. - Objective Vital Signs & Weight: Vital Signs (12 hours) Temp Pulse Resp BP BP Pulse Ox 05/05/20 08:00 98.5 F 78 20 135/73 98 05/05/20 00:00 98.7 F 82 18 120/69 97 Weight Admit Weight 106 lb 3.2 oz Weight 117 lb 11.2 oz I&O: 05/04/20 05/05/20 05/06/20 06:59 06:59 06:59 Intake Total 2320 Balance 2320 Result Diagrams: 05/05/20 05:08 05/05/20 05:08 Hospitalist ROS - Review of Systems Constitutional: denies: fever, chills Respiratory: denies: cough, shortness of breath, hemoptysis Cardiovascular: denies: chest pain, palpitations, light headedness Gastrointestinal: reports: diarrhea. denies: nausea, vomiting, abdominal pain Genitourinary: denies: dysuria, hematuria - Medication Medications: Active Medications Generic Name Dose Route Start Last Admin Trade Name Freq PRN Reason Stop Dose Admin Acetaminophen 650 mg 05/01/20 12:11 05/04/20 21:07 Acetaminophen 325 Mg Tab PO 650 mg Q4H PRN Administration Headache/Fever/Mild Pain (1-3) Aspirin 81 mg 05/03/20 09:00 05/04/20 09:27 Aspirin Chewable 81 Mg Tab PO 81 mg DAILY TIMOTHY Administration Calcium Citrate 950 mg 05/04/20 21:00 05/04/20 21:03 Calcium Citrate 950 Mg Tab PO 950 mg BID TIMOTHY Administration Cholecalciferol 1,000 units 05/03/20 09:00 05/04/20 09:36 Cholecalciferol 1,000 Units (25 Mcg) Tab PO 1,000 units DAILY TIMOTHY Administration Cholestyramine Resin 4 gm 05/03/20 22:00 05/04/20 21:04 Cholestyramine/Aspartame 4 Gm Packet PO 4 gm 1000,2200 TIMOTHY Administration Cyanocobalamin 1,000 mcg 05/03/20 09:00 05/04/20 09:25 Cyanocobalamin (Vitamin B-12) 1,000 Mcg Tab PO 1,000 mcg DAILY TIMOTHY Administration Enoxaparin Sodium 40 mg 05/02/20 09:00 05/04/20 09:34 Enoxaparin Sodium 40 Mg/0.4 Ml Syringe SC 40 mg 0900 TIMOTHY Administration Sodium Chloride 1,000 mls @ 50 mls/hr 05/01/20 12:15 05/04/20 18:07 Normal Saline 0.9% IV 1,000 mls .Q20H TIMOTHY Administration Lisinopril 2.5 mg 05/03/20 09:00 05/04/20 09:26 Lisinopril 2.5 Mg Tab PO 2.5 mg DAILY TIMOTHY Administration Magnesium Oxide 400 mg 05/03/20 11:51 05/03/20 12:18 Magnesium Oxide 400 Mg Tab PO 400 mg MoWeFr TIMOTHY Administration Metoprolol Tartrate 12.5 mg 05/02/20 21:00 05/04/20 21:02 Metoprolol Tartrate 25 Mg Tab PO 12.5 mg BID TIMOTHY Administration Rosuvastatin Calcium 20 mg 05/03/20 21:00 05/04/20 21:02 Rosuvastatin 20 Mg Tab PO 20 mg MoTuWeThFr TIMOTHY Administration Saccharomyces Boulardii 250 mg 05/03/20 21:00 05/04/20 21:02 Saccharomyces Boulardii 250 Mg Cap PO 250 mg BID TIMOTHY Administration Sodium Chloride 10 ml 05/02/20 09:00 05/04/20 21:06 Flush - Normal Saline 10 Ml Syringe IVF Not Given Q12HR TIMOTHY Vancomycin HCl 250 mg 05/01/20 12:00 05/05/20 05:55 Vancomycin Hcl 25 Mg/Ml Oral PO 250 mg Q6HR TIMOTHY Administration - Exam General Appearance: NAD, awake alert Heart: RRR, no murmur, no gallops, no rubs, normal peripheral pulses Respiratory: CTAB, no wheezes, no rales, no ronchi, normal chest expansion, no tachypnea Gastrointestinal: soft, non-tender, non-distended, normal bowel sounds, no guarding, no rigidity Extremities: no cyanosis, no edema Neurological: no focal deficits Psychiatric: normal affect, A&O x 3 Hosp A/P (1) C. difficile colitis Code(s): A04.72 - ENTEROCOLITIS D/T CLOSTRIDIUM DIFFICILE, NOT SPCF RECUR Status: Acute (2) Dehydration Code(s): E86.0 - DEHYDRATION Status: Acute (3) Macrocytic anemia Code(s): D53.9 - NUTRITIONAL ANEMIA, UNSPECIFIED Status: Chronic (4) Hypocalcemia Code(s): E83.51 - HYPOCALCEMIA Status: Acute (5) Hypomagnesemia Code(s): E83.42 - HYPOMAGNESEMIA Status: Acute (6) Hypokalemia Code(s): E87.6 - HYPOKALEMIA Status: Acute (7) CAD (coronary artery disease) Code(s): I25.10 - ATHSCL HEART DISEASE OF [place] CORONARY ARTERY W/O ANG PCTRS Status: Chronic (8) Hemorrhoids Code(s): K64.9 - UNSPECIFIED HEMORRHOIDS Status: Chronic - Plan #C. difficile colitis Reports 8 watery stools total yesterday. Continue CL diet well. Vancomycin po q6 hours and Gentle IVF hydration Continue contact/enteric precautions. Continue probiotic. Continue cholestyramine. Consult GI. #Dehydration IVF infusing. #Macroctyic anemia Hgb 8.1 Continue home dose B12 supplementation #Hypocalcemia mild. Add calcium citrate w/ Vitamin D3. #Hypo-magnesium stable. Mag level 1.9 Continue Mag-Ox supplementation daily. #Hemorrhoids chronic. Continue Prep-H Discussed sitz bath as another modality. #CAD Continue metoprolol, Crestor, aspirin Discussed case with Dr. Hernandez. The patient was seen and evaluated by myself. She is still having frequent loose bowel movements despite being on oral vancomycin for 4 days. The patient is tolerating liquid diet. She does not have any signs of sepsis and does not complain of any abdominal pain. We will continue vancomycin for a total of 14 days. We will replace electrolytes as needed. Consult GI
[2020-05-05] MEDS: Calcium Citrate 950 MG TAB PO SCH ×2 (09:37→20:42)
[2020-05-05] MEDS: Cholestyramine/Aspartame 4 gm Packet PO SCH ×2 (09:37→20:43)
[2020-05-05] MEDS: Lisinopril 2.5 MG TAB PO SCH (09:38)
[2020-05-05] MEDS: Cholecalciferol 1,000 UNITS (25 MCG) TAB PO SCH (09:38)
[2020-05-05] MEDS: Aspirin Chewable 81 MG TAB PO SCH (09:39)
[2020-05-05] MEDS: Metoprolol Tartrate 25 MG TAB PO SCH ×2 (09:39→20:42)
[2020-05-05] MEDS: Cyanocobalamin (Vitamin B-12) 1,000 MCG TAB PO SCH (09:43)
[2020-05-05] MEDS: Saccharomyces boulardii 250 MG CAP PO SCH ×2 (09:43→20:42)
[2020-05-05] MEDS: Enoxaparin Sodium 40 MG/0.4 ML SYRINGE SC SCH (09:52)
[2020-05-05] MEDS: Magnesium Oxide 400 MG TAB PO SCH (12:37)
[2020-05-05] MEDS: Sodium Chloride 0.9% 1,000 ML IV SCH (17:26)
[2020-05-05] MEDS ORDERED: Labetalol HCl 100 MG/20 ML VIAL ONE (17:37)
[2020-05-05] MEDS ORDERED: Cyanocobalamin 1000 MCG/ML VIAL SC SCH (17:45)
[2020-05-05] MEDS: Rosuvastatin 20 MG TAB PO SCH (20:42)
--- NOTE | 2020-05-05 23:13 | CON ---
DATE OF CONSULTATION: 05/05/2020 CHIEF COMPLAINT: Diarrhea. HISTORY OF PRESENT ILLNESS: Ms. Contreras is a 69-year-old woman, who was diagnosed with urinary tract infection around 6 weeks ago. She states that she has taken three separate courses of antibiotics since then and then finally on , Sunday, and Sunday she received Rocephin for the UTI. Her urinary symptoms improved. However, or Sunday, she started having some mild diarrhea and then this became much worse by Sunday. She has had 5 to 8 small volume liquidy stools per day with urgency. She has some unproductive urges. She has had some diffuse abdominal mild aching pain. No nausea or vomiting. No blood in the stool. Her weight has been stable. She came to the emergency room on 05/01/2020, and stool studies were performed, found to be positive for Clostridium difficile antigen and toxin. She was started on vancomycin orally on 05/01/2020. She is on her fourth full day of the vancomycin today. Her symptoms have persisted over the last 4 days without significant change. She has been started on Florastor and her abdominal discomfort is doing a bit better. PAST MEDICAL HISTORY: Coronary artery disease, status post stent. PAST SURGICAL HISTORY: Tubal ligation. SOCIAL HISTORY: No alcohol, tobacco, or drugs. FAMILY HISTORY: Negative for GI malignancy. ALLERGIES: NO KNOWN DRUG ALLERGIES. REVIEW OF SYSTEMS: Negative x10 systems reviewed, except as stated in the history of present illness. PHYSICAL EXAMINATION: VITAL SIGNS: Temperature 97.5, pulse 95, and blood pressure 138/70. GENERAL: She is in no acute distress. Alert and oriented x3. HEENT: Eyes have no scleral icterus. Oropharynx is clear without lesions. NECK: No cervical or supraclavicular lymphadenopathy. LUNGS: Clear to auscultation bilaterally. HEART: Regular rate and rhythm without murmur. ABDOMEN: Soft. Mild tenderness diffusely without guarding. Bowel sounds are present. EXTREMITIES: No lower extremity edema. NEUROLOGIC: Cranial nerves are grossly intact. LABORATORY DATA: White blood cell count 3.1, hemoglobin 8.1, MCV 125, and platelets 178. Creatinine 0.53, bilirubin 0.8, AST 22, ALT 10, and alk phos 43, and albumin 3.8. Folic acid 16.7, vitamin B12 less than 109. IMPRESSION: 1. Clostridium difficile colitis following multiple courses of antibiotics for urinary tract infection. She is on her fourth full day of the vancomycin and I would continue the current treatment at this point. If she starts having worsening of her diarrhea or pain or white blood cell count, then we can add IV metronidazole as well. For now, she appears to be responding appropriately. 2. Vitamin B12 deficiency with macrocytic anemia. 3. History of coronary artery disease. 4. Recent recurrent urinary tract infection. RECOMMENDATIONS: 1. Continue vancomycin orally. She is on 250 mg q.6 hours. I do not know that the 250 mg dose will be significantly superior to a 125 mg dose, but I would not change it at this point. 2. Continue Florastor. 3. Check an intrinsic factor antibody. 4. B12 subcutaneously. 5. Continue Questran for now. 6. If the diarrhea persists, then we can consider adding metronidazole IV and discontinuing the oral magnesium. ADDENDUM: RECOMMENDATIONS: 1. She has not had a prior colonoscopy and she was encouraged to schedule this as an outpatient in a couple of months after resolution of this C. diff colitis. 2. In light of the severe B12 deficiency, if she is found to have pernicious anemia, then she should also have upper endoscopy to screen for upper GI malignancy or reason for the B12 deficiency otherwise. Job ID: [id number]
[2020-05-06] MEDS: Vancomycin HCl 25 MG/ML Oral PO SCH ×3 (06:18→17:54)
[2020-05-06 06:43] LABS: #Eosinphils 0.2 thou/uL (0.0-0.7); #Lymphocytes 1.2 thou/uL (1.20-3.40); #Monocytes 0.4 thou/uL (0.11-0.59); #Neutrophils 1.7 thou/uL (1.40-6.50); %Basophils 1.1 % (0.0-1.0); %Eosinophils 6.3 % (0.0-10.0); %Lymphocytes 34.8 % (21.0-51.0); %Monocytes 10.1 % (0.0-10.0); %Neutrophils 47.7 % (42.0-75.0); Hemoglobin 7.9 g/dL (12.0-16.0); Mean Corpuscular HGB CONC 34.6 g/dL (32.0-36.0); Mean Platelet Volume 7.6 fL (7.4-10.4); Platelet Count 165 thou/uL (130-400); White Blood Cell (WBC) Count 3.5 thou/uL (4.8-10.8)
[2020-05-06 06:49] LABS: Anion Gap 11 mmol/L (10-20); BUN (Urea Nitrogen) Less than 4 mg/dL (9.8-20.1); Calc. Creatinine Clearance 84 mL/min (70-130); Calcium 7.6 mg/dL (7.8-10.44); Carbon Dioxide 24 mmol/L (23-31); Chloride 106 mmol/L (98-107); Estimated GFR-MDRD Greater than 90; Glucose 94 mg/dL (83-110); Potassium 3.7 mmol/L (3.5-5.1); Sodium 137 mmol/L (136-145)
[2020-05-06] MEDS: Calcium Citrate 950 MG TAB PO SCH (08:21)
[2020-05-06] MEDS: Enoxaparin Sodium 40 MG/0.4 ML SYRINGE SC SCH (08:22)
[2020-05-06] MEDS: Aspirin Chewable 81 MG TAB PO SCH (08:22)
[2020-05-06] MEDS: Metoprolol Tartrate 25 MG TAB PO SCH ×2 (08:22→20:45)
[2020-05-06] MEDS: Cholecalciferol 1,000 UNITS (25 MCG) TAB PO SCH (08:22)
[2020-05-06] MEDS: Cyanocobalamin (Vitamin B-12) 1,000 MCG TAB PO SCH (08:22)
[2020-05-06] MEDS: Saccharomyces boulardii 250 MG CAP PO SCH ×2 (08:22→20:45)
[2020-05-06] MEDS: Lisinopril 2.5 MG TAB PO SCH (08:22)
[2020-05-06] MEDS: Cholestyramine/Aspartame 4 gm Packet PO SCH ×2 (11:07→20:47)
[2020-05-06] MEDS: Sodium Chloride 0.9% 1,000 ML IV SCH (12:52)
--- NOTE | 2020-05-06 13:47 | PDOC.HOSPP ---
- Subjective Encounter Date: 05/06/20 Encounter Time: 10:40 Subjective: Patient had 3 watery bowel movements today. Soreness in the abdomen. She is not clear whether it is improving. However no nocturnal diarrhea. GI note reviewed. She is afebrile leukopenia. COVID ruled out recently - Objective Vital Signs & Weight: Vital Signs (12 hours) Temp Pulse BP BP Pulse Ox 05/06/20 08:22 91 137/78 05/06/20 08:00 97 05/06/20 07:45 98.9 F 91 137/78 97 Weight Admit Weight 106 lb 3.2 oz Weight 111 lb 9.6 oz I&O: 05/05/20 05/06/20 05/07/20 06:59 06:59 06:59 Intake Total 5410 Balance 5410 Result Diagrams: 05/06/20 05:30 05/06/20 05:45 Hospitalist ROS - Medication Medications: Active Medications Generic Name Dose Route Start Last Admin Trade Name Freq PRN Reason Stop Dose Admin Acetaminophen 650 mg 05/01/20 12:11 05/04/20 21:07 Acetaminophen 325 Mg Tab PO 650 mg Q4H PRN Administration Headache/Fever/Mild Pain (1-3) Aspirin 81 mg 05/03/20 09:00 05/06/20 08:22 Aspirin Chewable 81 Mg Tab PO 81 mg DAILY TIMOTHY Administration Cholecalciferol 1,000 units 05/03/20 09:00 05/06/20 08:22 Cholecalciferol 1,000 Units (25 Mcg) Tab PO 1,000 units DAILY TIMOTHY Administration Cholestyramine Resin 4 gm 05/03/20 22:00 05/06/20 11:07 Cholestyramine/Aspartame 4 Gm Packet PO 4 gm 1000,2200 TIMOTHY Administration Enoxaparin Sodium 40 mg 05/02/20 09:00 05/06/20 08:22 Enoxaparin Sodium 40 Mg/0.4 Ml Syringe SC 40 mg 0900 TIMOTHY Administration Sodium Chloride 1,000 mls @ 50 mls/hr 05/01/20 12:15 05/06/20 12:52 Normal Saline 0.9% IV 1,000 mls .Q20H TIMOTHY Administration Lisinopril 2.5 mg 05/03/20 09:00 05/06/20 08:22 Lisinopril 2.5 Mg Tab PO 2.5 mg DAILY TIMOTHY Administration Metoprolol Tartrate 12.5 mg 05/02/20 21:00 05/06/20 08:22 Metoprolol Tartrate 25 Mg Tab PO 12.5 mg BID TIMOTHY Administration Rosuvastatin Calcium 20 mg 05/03/20 21:00 05/05/20 20:42 Rosuvastatin 20 Mg Tab PO 20 mg MoTuWeThFr TIMOTHY Administration Saccharomyces Boulardii 250 mg 05/03/20 21:00 05/06/20 08:22 Saccharomyces Boulardii 250 Mg Cap PO 250 mg BID TIMOTHY Administration Sodium Chloride 10 ml 05/02/20 09:00 05/06/20 08:23 Flush - Normal Saline 10 Ml Syringe IVF Not Given Q12HR TIMOTHY Vancomycin HCl 250 mg 05/01/20 12:00 05/06/20 12:52 Vancomycin Hcl 25 Mg/Ml Oral PO 250 mg Q6HR TIMOTHY Administration - Exam General Appearance: NAD, awake alert Eye: PERRL ENT: normocephalic atraumatic Neck: supple Heart: RRR Respiratory: CTAB, normal chest expansion, rhonchi Gastrointestinal: soft, normal bowel sounds Neurological: no focal deficits Psychiatric: A&O x 3 Hosp A/P - Plan (1) C. difficile colitis Code(s): A04.72 - ENTEROCOLITIS D/T CLOSTRIDIUM DIFFICILE, NOT SPCF RECUR Status: Acute (2) Dehydration Code(s): E86.0 - DEHYDRATION Status: Acute (3) Macrocytic anemia Code(s): D53.9 - NUTRITIONAL ANEMIA, UNSPECIFIED Status: Chronic (4) Hypocalcemia Code(s): E83.51 - HYPOCALCEMIA Status: Acute (5) Hypomagnesemia Code(s): E83.42 - HYPOMAGNESEMIA Status: Acute (6) Hypokalemia Code(s): E87.6 - HYPOKALEMIA Status: Acute (7) CAD (coronary artery disease) Code(s): I25.10 - ATHSCL HEART DISEASE OF [place] CORONARY ARTERY W/O ANG PCTRS Status: Chronic (8) Hemorrhoids Code(s): K64.9 - UNSPECIFIED HEMORRHOIDS Status: Chronic - Plan #C. difficile colitis Reports 8 watery stools total yesterday. Continue CL diet well. Vancomycin po q6 hours and Gentle IVF hydration Continue contact/enteric precautions. Continue probiotic. Continue cholestyramine. Consult GI. #Dehydration IVF infusing. #Macroctyic anemia Hgb 8.1 Continue home dose B12 supplementation #Hypocalcemia mild. Add calcium citrate w/ Vitamin D3. #Hypo-magnesium stable. Mag level 1.9 Continue Mag-Ox supplementation daily. #Hemorrhoids chronic. Continue Prep-H Discussed sitz bath as another modality. #CAD Continue metoprolol, Crestor, aspirin 8th 3 watery bowel movements by 10:30 AM. Continue with vancomycin p.o. as well as Florastor she is clinically seems to be stable will refrain from adding IV Flagyl for now. If she improved with p.o. vancomycin plan for discharge in a day or 2 to complete the course for 1 week. B12 deficiency Macrocytic anemia her MCV is 127 and a hemoglobin is 7.9 -Atrophic gastritis versus pernicious anemia. -She got IM shot last night. The next scheduled will be a month from now She will undergo EGD when she is going for colonoscopy. GI clinic will set up an appointment in a month or so. Patient colonoscopy 2 months from now.
--- NOTE | 2020-05-06 19:42 | PRG ---
DATE OF SERVICE: 05/06/2020 REASON FOR CONSULTATION: Question of difficile colitis. SUBJECTIVE: Today, the patient states that she had approximately 3 liquid bowel movements over the course of the last 24 hours that were semi-solid in consistency and consisting of more firmness when compared to on admission. She also states that her abdominal pain has improved to the point where she is now only sore across her abdomen. Otherwise, she denies any nausea, vomiting, fevers, chills, hematemesis, melena, or hematochezia. OBJECTIVE: VITAL SIGNS: Temperature 98.9, pulse 91, blood pressure 137/78, respiratory rate 20, and saturating 97% on room air. GENERAL: The patient was sitting in a chair at bedside, in no acute distress. Alert and oriented x4. CARDIOVASCULAR: Regular rate and rhythm. RESPIRATORY: Clear to auscultation bilaterally. ABDOMEN: Normoactive bowel sounds. Soft, nondistended. Mild tenderness to palpation in all abdominal quadrants. EXTREMITIES: No cyanosis, clubbing, or edema. LABORATORY DATA: CBC with a white blood cell count of 3.5, hemoglobin 7.9, hematocrit 22.9, platelets 165. Chemistry with a sodium of 137, potassium 3.7, chloride 106, CO2 of 24, BUN less than 4, creatinine 0.49, glucose 94. IMAGING DATA: No current GI imaging is available for review. ASSESSMENT AND PLAN: The patient is a 69-year-old female with past medical history of coronary artery disease, presenting with abdominal pain and diarrhea with infectious stool studies consistent with Clostridium difficile colitis, but now also with B12 deficiency on serologies. 1. Clostridium difficile colitis. The patient initially presented with acute onset of increased generalized abdominal pain in addition to worsening diarrhea after being treated for recurrent urinary tract infections with antibiotics. Infectious stool studies obtained during this admission were positive for the presence of Clostridium difficile making this the most likely reason for her abdominal pain and diarrhea. She was subsequently placed on oral vancomycin and has been responding well to therapy thus far with lessened abdominal pain and less frequent bowel movements today. Recommendations: a. We will continue the patient on oral vancomycin 250 mg every 6 hours as part of treatment for C. difficile colitis. b. We would discontinue the magnesium oxide supplements given unclear clinical etiology/efficacy and could contribute further diarrhea. c. Can continue probiotic administration. d. Pain control per primary team. e. Would continue cholestyramine as an adjunctive therapy for Clostridium difficile colitis. f. If the patient exhibits increasing abdominal pain or sudden worsening of her diarrhea, would then consider adding IV metronidazole to her regimen. 2. B12 deficiency: The patient initially presented to the hospital as part of treatment of her abdominal pain and diarrhea. However, over the course of this admission, she was noted to have significant anemia with both folate and B12 serologies obtained at that time. While her folate levels were normal, her B12 was less than 109, consistent with B12 deficiency. At the current time, the origin of her B12 deficiency is unknown, but the differential could include inadequate B12 intake, pernicious anemia, inflammation of the terminal ileum resulting in inadequate absorption, and/or small intestinal bacterial overgrowth. Recommendations: a. Would follow up on serologies related to pernicious anemia including intrinsic factor antibodies. b. We would continue supplementation with B12 daily in addition to the subcu administration yesterday. c. The patient will likely need further monitoring for this as an outpatient. We will continue to follow. Please call with any questions. Job ID: [id number]
[2020-05-06] MEDS: Rosuvastatin 20 MG TAB PO SCH (20:45)
[2020-05-07] MEDS: Vancomycin HCl 25 MG/ML Oral PO SCH ×3 (00:26→12:40)
[2020-05-07 06:17] LABS: Anion Gap 10 mmol/L (10-20); BUN (Urea Nitrogen) 4 mg/dL (9.8-20.1); Calc. Creatinine Clearance 77 mL/min (70-130); Calcium 7.8 mg/dL (7.8-10.44); Carbon Dioxide 25 mmol/L (23-31); Chloride 107 mmol/L (98-107); Estimated GFR-MDRD Greater than 90; Glucose 100 mg/dL (83-110); Potassium 3.8 mmol/L (3.5-5.1); Sodium 138 mmol/L (136-145)
[2020-05-07 06:33] LABS: Band 5 % (5-11); Eosinophils 5 % (0-10); Lymphocytes 28 % (21-51); MDiff Complete? YES; Macrocytosis MODERATE=16-30 cells (100X) (0-5/hpf); Mean Corpuscular HGB CONC 34.2 g/dL (32.0-36.0); Mean Corpuscular Hemoglobin 42.7 pg (27.0-31.0); Mean Platelet Volume 7.6 fL (7.4-10.4); Monocytes 17 % (0-10); Neutrophil 43 % (42-75); Platelet Count 178 thou/uL (130-400); RBC Distribution Width 13.9 % (11.5-14.5); Reactive Lymphocytes 2 % (0-10); Red Blood Cell (RBC) Count 1.88 mill/uL (4.20-5.40); White Blood Cell (WBC) Count 4.2 thou/uL (4.8-10.8)
[2020-05-07] MEDS: Lisinopril 2.5 MG TAB PO SCH (08:46)
[2020-05-07] MEDS: Cholecalciferol 1,000 UNITS (25 MCG) TAB PO SCH (08:46)
[2020-05-07] MEDS: Aspirin Chewable 81 MG TAB PO SCH (08:46)
[2020-05-07] MEDS: Saccharomyces boulardii 250 MG CAP PO SCH (08:46)
[2020-05-07] MEDS: Metoprolol Tartrate 25 MG TAB PO SCH (08:47)
[2020-05-07] MEDS: Enoxaparin Sodium 40 MG/0.4 ML SYRINGE SC SCH (08:48)
[2020-05-07 10:50] VITALS: BMI 20.2
[2020-05-07 11:31] VITALS: BP 138/76; TEMP 98.6
[2020-05-07] MEDS: Cholestyramine/Aspartame 4 gm Packet PO SCH (12:40)
--- NOTE | 2020-05-08 05:14 | PQF ---
CLINICAL DOCUMENTATION CLARIFICATION FORM: Dear : Evan Buenrostro Date / Time: 05/08/20513 Please exercise your independent, professional judgment in responding to the clarification form. Clinical indicators are provided on the bottom of this form for your review Please check appropriate box(es): [ x ] Associated Diagnosis: Hyponatremia [ ] Abnormal Laboratory findings not clinically significant [ ] Other diagnosis [ ] Unable to determine In addition, please specify: Present on Admission (POA): [ ] Yes [ ] No [ ] Unable to determine Physician Signature: Date/Time: For continuity of documentation, please document condition throughout progress notes and discharge summary. Thank You. To be completed by CDI/Coding staff for physician review: Present Clinical Indicators - Signs / Symptoms / Labs Results and Location in Medical Record [X] BP 150/84, Pulse 107, Resp 18, Temp 98.0 Vital signs 103 [X] Sodium 135 Laboratory 05/02 [X] Sodium 131 Laboratory 05/03 [X] Sodium 133 Laboratory 05/04 [X] Sodium 134 Laboratory 05/05 [X] Complaints of diarrhea H&P Dr Hernandez 05/01 Present Risk Factors Results and Location in Medical Record [X] 69 year-old Female H&P Dr Hernandez 05/01 [X] CAD s/p Stent H&P Dr Hernandez 05/01 [X] C Diff Colitis H&P Dr Hernandez 05/01 [X] Dehydration Present Treatments Results and Location in Medical Record [X] Series of electrolyte labs Laboratory [X] IV Sodium Chloride 1L OCT 06 [X] Liquid diet H&P Dr Hernandez 05/01 CDS/Survey Instrument Operator Signature: Nasra Noland Phone #: ext [phone] Date/Time: 05/08/2020513 This is a permanent part of the Medical Record [facility]
[2020-05-08] MEDS ORDERED: Cyanocobalamin (Vitamin B-12) 1,000 MCG TAB PO SCH (09:00)
--- NOTE | 2020-05-10 07:52 | DIS ---
DATE OF ADMISSION: 05/01/2020 DATE OF DISCHARGE: 05/07/2020 CONSULTS: Dr. Raymundo Fox with GI. DISCHARGE DIAGNOSES: 1. Clostridium difficile colitis. 2. Macrocytic anemia with MCV of 127 and hemoglobin of 7.9, B12 deficiency. 3. Hypomagnesemia and hypocalcemia that have been corrected. 4. Chronic hemorrhoids. 5. Coronary artery disease. DISCHARGE MEDICATIONS: 1. B12, 1000 mcg daily. 2. Vancomycin 250 mg four times a day for 14 days. 3. Florastor 250 mg twice a day for 2 weeks. 4. Lopressor 12.5 mg twice a day. 5. Vitamin D one tablet daily 1000 units. 6. Crestor 20 mg at bedtime. 7. Aspirin 81 mg daily. 8. Lisinopril 2.5 mg daily. Few other p.r.n. medications. PHYSICAL EXAMINATION: VITAL SIGNS: On the day of discharge, temperature 98.6, pulse 92, blood pressure 138/76, saturating 99% on room air. GENERAL: The patient is quite anxious to go home. She did have few bowel movements, but the latest one was formed stool and she is happy with that and she is tolerating regular diet. No abdominal discomfort. CARDIOVASCULAR: Regular rate and rhythm without murmurs, rubs, or gallops. LUNGS: Clear to auscultation bilaterally without wheezing, rales, or rhonchi. ABDOMEN: Soft, nontender, nondistended. Good bowel sounds. EXTREMITIES: Without any pitting edema. HOSPITAL COURSE: This is a 69-year-old female with a history of coronary artery disease and recent urinary tract infection treated with antibiotics, presented with abdominal pain and diarrhea with infectious stool positive for C difficile colitis. Part of the workup revealed macrocytic anemia and B12 deficiency of 109. Folate was in the normal range. Her liver function tests were also in the normal range. She had mild hyponatremia, hypocalcemia, as well as hypomagnesemia that have been corrected. Her electrolytes were at normal range on the day of discharge. Her hemoglobin is 8.0. Her platelets were 178,000. The patient received vitamin B12 IM shot x1 and discharged with p.o. supplements. Intrinsic factor antibody has been sent out. She will follow up with Dr. Fox for both EGD and colonoscopy in 1 to 2 months' time. DISCHARGE INSTRUCTIONS: Activity as tolerated. Regular diet. Follow up with PCP in 1 week. Follow up with Dr. Raymundo Fox in the GI Clinic in 1 to 2 months, they will call you for the appointment. Discharge time took over 35 minutes. Job ID: [id number]
== END 2020-05-07 14:53 | disposition home or self-care (01) | DRG 372 ==
LOC: ERS 06:39 → T4-A 13:04
PROVIDERS: ADMIT Internal Medicine; ATTEND Internal Medicine
DX: A04.72 Enterocolitis due to Clostridium difficile, not specified as recurrent (principal); E87.1 Hypo-osmolality and hyponatremia; I25.10 Atherosclerotic heart disease of native coronary artery without angina pectoris; E86.0 Dehydration; E87.6 Hypokalemia; D50.9 Iron deficiency anemia, unspecified; E83.42 Hypomagnesemia; K64.9 Unspecified hemorrhoids; E83.51 Hypocalcemia; E53.8 Deficiency of other specified B group vitamins; Z95.5 Presence of coronary angioplasty implant and graft; Z87.440 Personal history of urinary (tract) infections; Z98.51 Tubal ligation status; Z79.899 Other long term (current) drug therapy; Z79.82 Long term (current) use of aspirin; Z28.21 Immunization not carried out because of patient refusal
CPT/HCPCS: 36415; 80048; 80053; 81003; 82607; 82746; 83605; 83735; 85025; 86340; 87040; 87045; 87046; 87086; 87177; 87324; 87328; 87329; 87427; 87449; 87635; 93005; 96361; 96365; J0696; J1650; J3420; J3475; J7050; U0003

== ENCOUNTER 2020-06-24 23:00 | Emergency (ER) | payer MEDICARE ==
[2020-06-25 00:11] LABS: Bacteria/HPF None Seen HPF (None Seen); Bilirubin Negative (Negative); Blood, Urine Trace (Negative); Clarity Turbid (Clear); Glucose, Urine (Dipstick) Normal (Negative); Ketone, Urine Negative (Negative); Leukocyte 500 Leu/uL (Negative); Nitrite Negative (Negative); Protein, Urine (Dipstick) 10 mg/dL (Neg-Trace); Specific Gravity, Urine 1.021 (1.002-1.036); Squamous Epithelial 21-50 HPF (0-3); Urobilinogen Normal mg/dL (Less than 2); WBC/HPF Greater than 50 HPF (0-3)
== END 2020-06-25 00:32 | disposition home or self-care (01) ==
LOC: ERS 23:00
DX: R10.2 Pelvic and perineal pain (principal); I25.2 Old myocardial infarction; Z79.899 Other long term (current) drug therapy
CPT/HCPCS: 81003; 81015; 87086; 99284

== ENCOUNTER 2020-07-14 06:17 | Outpatient (CLI) | payer MEDICARE | END 2020-07-14 06:18 | disposition home or self-care (01) | LOC: LABBT 06:17 | PROVIDERS: ATTEND Student in an Organized Health Care Education/Training Program | DX: Z01.810 Encounter for preprocedural cardiovascular examination (principal); I25.10 Atherosclerotic heart disease of native coronary artery without angina pectoris; D25.9 Leiomyoma of uterus, unspecified | CPT/HCPCS: 93005; 93010 ==

== ENCOUNTER 2020-07-19 11:44 | Day surgery (SDC) | payer MEDICARE ==
[2020-07-14 10:40] LABS: Mean Corpuscular HGB CONC 32.5 G/DL (32.0-36.0); Mean Corpuscular Hemoglobin 31.3 PG (27.0-33.0); Mean Corpuscular Volume 96.4 fl (80.0-100.0); Mean Platelet Volume 9.5 fl (7.4-10.4); Platelet Count 300 10x3/uL (130-400); RBC Distribution Width 13.4 % (11.5-14.5); Red Blood Cell (RBC) Count 4.47 10x6/uL (3.90-5.20); White Blood Cell (WBC) Count 5.8 10x3/uL (4.5-11.0)
[2020-07-14 10:43] LABS: Anion Gap 16 mmol/L (10-20); BUN (Urea Nitrogen) 15 mg/dL (9.8-20.1); Calc. Creatinine Clearance 0 mL/min (70-130); Calcium 9.4 mg/dL (7.8-10.44); Carbon Dioxide 25 mmol/L (23-31); Chloride 100 mmol/L (98-107); Glucose 92 mg/dL (83-110); Potassium 4.6 mmol/L (3.5-5.1); Sodium 136 mmol/L (136-145)
[2020-07-14 18:19] LABS: SARS-CoV-2 MS2 Positive; SARS-CoV-2 N Gene Negative; SARS-CoV-2 S Gene Negative; SARS-CoV-2 by NAA Not Detected (NotDetected); SARS-CoV-2 orf1ab Negative
[2020-07-16 10:22] VITALS: BMI 19.3
[~2020-07-19 11:44] MED LIST: Dexamethasone 20 MG/5 ML VIAL ONE; Lidocaine 1% PF 5 ML VIAL ONE; Metoclopramide HCl 10 MG/2 ML VIAL ONE; Ondansetron PF 4 MG/2 ML Vial ONE; PHENYLEPHRINE-NS 100 MCG/ML 10 ML SYRINGE ONE; PROPOFOL 200 MG/20 ML VIAL ONE; Rocuronium Bromide 10 MG/ML (10ML VIAL) ONE
[2020-07-19] MEDS ORDERED: SUGAMMADEX SODIUM 200 MG/2 ML VIAL ONE (13:10)
[2020-07-19] MEDS ORDERED: Famotidine/PF 20 mg/2ml Vial ONE (13:10)
[2020-07-19] MEDS ORDERED: Fentanyl 100 MCG/2 ML VIAL ONE (13:10)
--- NOTE | 2020-07-20 13:38 | OP ---
DATE OF PROCEDURE: 07/19/2020 PREOPERATIVE DIAGNOSIS: Uterine mass. POSTOPERATIVE DIAGNOSIS: Uterine mass. PROCEDURE PERFORMED: Hysteroscopic myomectomy. ANESTHESIA: General. WAREHOUSE WORKER SURGEON: None. ESTIMATED BLOOD LOSS: 10 mL. IVF: 1100 mL of crystalloid. URINE OUTPUT: 20 mL of clear urine. COMPLICATIONS: None. DRAINS: None. PATHOLOGY: Uterine fibroid. FINDINGS: Large intracavitary fibroid off the right uterine wall. Bilateral tubal ostia were visualized. Atrophic endometrium otherwise, there was a small perforation in the anterior cervix from the initial cervical dilation. The fluid deficit for the case was 1400 mL. DESCRIPTION OF PROCEDURE: The patient was taken to the operating room, where general anesthesia was obtained without difficulty. The patient was prepped and draped in a sterile fashion in dorsal lithotomy position. A speculum was placed in the vagina. The anterior lip of the cervix was grasped with a single-tooth tenaculum. The cervix was then progressively dilated with Tito dilators and then sounded. However, the sound did not meet resistance, consistent with perforation. Once the cervix had been adequately dilated, a 5 mm hysteroscope was assembled and primed using normal saline as distention media. The hysteroscope was inserted into the cervix and the perforation anteriorly was noted. This was a small perforation. There was no active bleeding from this area, and the hysteroscope was able to bypass that perforation and go into the internal cervical os and into the uterine cavity. Following this, the passage of the scope actually tamponaded the perforation in the cervix. Therefore, distention was able to be maintained in a safe environment without excessive fluid deficit. Therefore, the above findings were noted in the uterine cavity, and decision was made to proceed with resection of the intrauterine mass that appeared to be consistent with the uterine fibroid. The small mini soft tissue incisor was used to shave the fibroid away and this was done so over approximately 30 minutes without difficulty. There was no active bleeding at the conclusion of the procedure and no other intrauterine masses or thickening of the endometrium was noted. The hysteroscope was then removed out of the uterus and the cervix was observed. There was no active bleeding from the cervix. The tenaculum was removed off the cervix. Speculum was removed out of the vagina, and the patient tolerated the procedure well. Sponge, lap, and needle counts were correct x2. The patient was taken to recovery room in stable condition. The patient received Ancef 2 g prior to the procedure. Job ID: [id number]
== END 2020-07-19 17:10 | disposition home or self-care (01) ==
LOC: SDC 11:44
PROVIDERS: ATTEND Student in an Organized Health Care Education/Training Program
PROC: 0UB98ZZ Excision of Uterus, Via Natural or Artificial Opening Endoscopic (ICD-10-PCS; principal; 2020-07-19)
DX: D25.9 Leiomyoma of uterus, unspecified (principal); N99.71 Accidental puncture and laceration of a genitourinary system organ or structure during a genitourinary system procedure; I25.2 Old myocardial infarction; I25.10 Atherosclerotic heart disease of native coronary artery without angina pectoris; E78.5 Hyperlipidemia, unspecified; Z79.82 Long term (current) use of aspirin; Z79.899 Other long term (current) drug therapy; Z88.2 Allergy status to sulfonamides; Z95.5 Presence of coronary angioplasty implant and graft; Z20.828 Contact with and (suspected) exposure to other viral communicable diseases
CPT/HCPCS: 58561; 80048; 85027; 86850; 86900; 86901; U0003; 36415; 87635; 88305; J0690; J1100; J2405; J2704; J2765; J3010; S0028